=== PATIENT | female | born 1960 | race Caucasian/White ===

== ENCOUNTER 2017-11-17 08:03 | Emergency (ER) | payer MEDICARE ==
[~2017-11-17] VITALS: Ht 162.6 cm; Wt 68.5 kg
[~2017-11-17 08:03] MED LIST: AZITHROMYCIN250 MG PO; FUROSEMIDE40 MG PO; LEVAQUIN500 MG PO; OMEPRAZOLE20 M1 PO; PREDNISONE10 MG PO; PREDNISONE5 MG; PROVENTIL HFA6.7 GM; SPIRIVA18 MCG INH; SYMBICORT 16010.2 GM; SYMBICORT 16010.2 GM IH
[2017-11-17] MEDS ORDERED: AZITHROMYCIN 500MG/NS 250 ML 250 ML IV STA (08:43)
[2017-11-17] MEDS ORDERED: LOW DOSE ASPIRI81 MG PO (08:43)
[2017-11-17 08:45] LABS: BASOPHILS % 0.5 % (0.0-1.0); EOSINOPHILS # (AUTO) 0.1 (0.0-0.4); HEMATOCRIT 42.2 % (34.2-44.1); HEMOGLOBIN 12.9 g/dL (12.0-16.0); LYMPHOCYTES # (AUTO) 1.1 (1.0-3.2); LYMPHOCYTES % 13.3 % (18.0-39.1); MEAN CORPUSCULAR HEMOGLOBIN 28.7 pg (28-32); MEAN CORPUSCULAR HGB CONC 30.6 g/dL (31-35); MONOCYTES # (AUTO) 0.6 (0.2-0.8); MONOCYTES % 7.7 % (4.4-11.3); NEUTROPHILS # (AUTO) 6.4 (2.1-6.9); PLATELET COUNT 232 x10e3/uL (140-360); RED BLOOD COUNT 4.49 x10e6/uL (3.6-5.1)
[2017-11-17 09:03] LABS: ALANINE AMINOTRANSFERASE 12 IU/L (0-55); ALBUMIN 3.8 g/dL (3.5-5.0); ALBUMIN/GLOBULIN RATIO 1.1 (0.8-2.0); ALKALINE PHOSPHATASE 48 IU/L (40-150); ANION GAP 14.3 mmol/L (8-16); BLOOD UREA NITROGEN 14 mg/dL (7-26); BUN/CREATININE RATIO 20 (6-25); CALCIUM 9.7 mg/dL (8.4-10.2); CARBON DIOXIDE 37 mmol/L (22-29); CHLORIDE 98 mmol/L (98-107); CREATINE KINASE 65 IU/L (29-168); CREATININE, SERUM 0.69 mg/dL (0.57-1.11); EST GLOMERULAR FILTRATION RATE > 60 ML/MIN (60-); GLUCOSE 118 mg/dL (74-118); POTASSIUM 4.3 mmol/L (3.5-5.1); SODIUM 145 mmol/L (136-145)
[2017-11-17 10:13] LABS: BILIRUBIN,URINE NEGATIVE (NEGATIVE); CLARITY,URINE CLEAR (CLEAR); COLOR,URINE YELLOW (YELLOW); KETONES,URINE NEGATIVE (NEGATIVE); LEUKOCYTE ESTERASE ,URINE TRACE (NEGATIVE); NITRITE,URINE NEGATIVE (NEGATIVE); PROTEIN,URINE DIPSTICK NEGATIVE (NEGATIVE); URINE UROBILINOGEN 0.2 mg/dL (0.2 - 1)
--- NOTE | 2017-11-17 10:21 | Diagnostic Imaging Report ---
PROCEDURE: CHEST SINGLE (PORTABLE) COMPARISON: 01/05/2016. INDICATIONS: COUGH FINDINGS: Lungs are well-inflated. No focal consolidation, pleural effusion, or pneumothorax. Linear opacity in the lower lung zones compatible with subsegmental atelectasis. Tortuosity of the thoracic aorta. Otherwise normal cardiomediastinal contour when accounting for portable, AP technique. No acute osseous abnormality. CONCLUSION: Subsegmental atelectasis in the lower lobes. Otherwise no acute cardiopulmonary abnormality. Dictated by: Laurent Wyatt M.D. on 11/17/2017 at 10:28 Electronically approved by: Laurent Wyatt M.D. on 11/17/2017 at 10:28
[2017-11-17 10:23] LABS: EPITHELIAL CELLS,URINE FEW /LPF; WBC,URINE (MAN) 0-5 /HPF (0-5)
[2017-11-17 10:24] LABS: TRANSITIONAL EPI CELLS,URINE RARE
[2017-11-17 12:57] LABS: ABG PH 7.33 (7.31-7.41)
[2017-11-17 12:58] LABS: ABG HCO3 41 mmol/L (23-28); ABG PCO2 78 mmHg (41-51); ABG PO2 79 mmHg (80-105)
[2017-11-17] MEDS ORDERED: PREDNISONE20 MG PO (13:03)
[2017-11-17] MEDS ORDERED: TYLENOL WITH C1 EACH PO (13:05)
[2017-11-17] MEDS ORDERED: LEVAQUIN500 MG PO (13:09)
== END 2017-11-17 13:56 | disposition home or self-care (01) ==
LOC: ER 08:03
DX: R50.9 Fever, unspecified (principal); R05 Cough; J44.1 Chronic obstructive pulmonary disease with (acute) exacerbation; B34.9 Viral infection, unspecified
CPT/HCPCS: 36415; 71045; 80053; 81001; 82550; 82553; 82805; 84484; 85025; 87040; 99284; J0456; 36600

== ENCOUNTER 2018-04-18 10:08 | Outpatient (RCR) | payer MEDICARE ==
[~2018-04-18 10:08] MED LIST changes: +LOW DOSE ASPIRI81 MG PO; +PREDNISONE20 MG PO; +TYLENOL WITH C1 EACH PO
== END 2018-05-10 ==
LOC: RESP 10:08
PROVIDERS: ATTEND Internal Medicine Pulmonary Disease
DX: J44.9 Chronic obstructive pulmonary disease, unspecified (principal)
CPT/HCPCS: G0238 ×5; G0424 ×5

== ENCOUNTER 2018-10-18 07:51 | Emergency (ER) | payer MEDICARE ==
[~2018-10-18] VITALS: Ht 162.6 cm; Wt 68.5 kg
--- OUTSIDE RECORDS SUMMARY | 2018-10-18 07:54 | XMS REPORT ---
Author Author [facility] Address Unknown Phone Unavailable Care Team Providers Care Housekeeping Room Attendant Name Role Phone Michelle ORTEGA Unavailable Unavailable Problems This patient has no known problems. Allergies, Adverse Reactions, Alerts This patient has no known allergies or adverse reactions. Medications This patient has no known medications. Results Test Description Test Time Test Comments Text Results Atomic Results Result Comments CHEST SINGLE (PORTABLE) 2017-11-17 10:28:00 [place] [address] Patient Name: BOONE GAINES MR #: [id number] : 1960 Age/Sex: 57/F Req #: [id number] [facility] Physician: Ordered by: FRANCIS ORTEGA MD Report #: [id number] Location: ER Room/Bed: Procedure: [id number] DX/CHEST SINGLE (PORTABLE) Exam Date: 11/17/17 Exam Time: 0920 REPORT STATUS: Signed PROCEDURE: CHEST SINGLE (PORTABLE) COMPARISON: 01/05/2016. INDICATIONS: COUGH FINDINGS: Lungs are well-inflated. No focal consolidation, pleural effusion, or pneumothorax. Linear opacity in the lower lung zones compatible with subsegmental atelectasis. Tortuosity of the thoracic aorta. Otherwise normal cardiomediastinal contour when accounting for portable, AP technique. No acute osseous abnormality. CONCLUSION: Subsegmental atelectasis in the lower lobes. Otherwise no acute cardiopulmonary abnormality. Dictated by: Jonah Santos M.D. on 11/17/2017 at 10:28 Electronically approved by: Jonah Santos M.D. on 11/17/2017 at 10:28 Dictated By: JONAH SANTOS MD [id number] Transcribed By: JACIEL on 11/17/17 1028 COPY TO: FRANCIS ORTEGA MD
[2018-10-18] MEDS ORDERED: TRELEGY INH (08:18)
[2018-10-18] MEDS ORDERED: HYDROXYZINE HCL25 MG PO (08:19)
--- NOTE | 2018-10-18 08:35 | NUR ---
DR TRAN AT BEDSIDE FOR PATIENT EVAL.
[2018-10-18] MEDS ORDERED: HYDROCODONE/APAP 10MG-325MG TAB PO NR (08:45)
[2018-10-18] MEDS ORDERED: KETOROLAC TROMETHAMINE 60 MG/2 ML VIAL IM ONE (08:45)
[2018-10-18] MEDS ORDERED: ALBUTEROL/IPRATROPIUM 3 ML NEB NEB ONE (09:45)
--- NOTE | 2018-10-18 10:56 | Diagnostic Imaging Report ---
EXAMINATION: RIBS UNILAT W/CXR INDICATION: Trauma, right rib pain COMPARISON: None FINDINGS: LINES/TUBES:EKG leads overlie the chest. LUNGS:The lungs are well-inflated. No focal consolidation or pulmonary edema. PLEURA:No pleural effusion or pneumothorax. MEDIASTINUM:The cardiomediastinal silhouette appears normal in size and shape. BONES/SOFT TISSUES:No displaced rib fractures. ABDOMEN:No free air under the diaphragm. IMPRESSION: No displaced rib fractures. No focal pneumonia or pulmonary edema. Signed by: Carlitos Espinosa MD on 10/18/2018 10:53 AM
[2018-10-18 12:28] VITALS: BP 122/66
== END 2018-10-18 12:30 | disposition home or self-care (01) ==
LOC: ER 07:51
DX: R07.89 Other chest pain (principal); J44.9 Chronic obstructive pulmonary disease, unspecified; I50.9 Heart failure, unspecified; K21.9 Gastro-esophageal reflux disease without esophagitis; Z99.81 Dependence on supplemental oxygen; Z87.891 Personal history of nicotine dependence
CPT/HCPCS: 71101; 94640; 99284; J1885

== ENCOUNTER 2018-10-24 11:31 | Emergency (ER) | payer MEDICARE ==
[~2018-10-24] VITALS: Ht 162.6 cm; Wt 68.5 kg
[~2018-10-24 11:31] MED LIST changes: +HYDROXYZINE HCL25 MG PO; +TRELEGY INH
--- NOTE | 2018-10-24 12:20 | NUR ---
PT UPDATED ON PENDING TRANSPORTATION HOME
== END 2018-10-24 12:35 | disposition home or self-care (01) ==
LOC: ER 11:31
DX: R07.89 Other chest pain (principal); Z79.82 Long term (current) use of aspirin
CPT/HCPCS: 99284